=== PATIENT | male | born 1990 | race Caucasian/White ===

== ENCOUNTER 2020-01-16 18:27 | Emergency (ER) | payer SELFPAY ==
[~2020-01-16] VITALS: Ht 185.4 cm; Wt 98.9 kg
[~2020-01-16 18:27] MED LIST: ANAPROX DS550 MG PO; CIPRO500 MG PO
[2020-01-16 18:30] VITALS: BP 126/74
== END 2020-01-16 21:25 | disposition home or self-care (01) ==
LOC: ED 18:27
DX: S01.81XA Laceration without foreign body of other part of head, initial encounter (principal); F17.200 Nicotine dependence, unspecified, uncomplicated; V09.9XXA Pedestrian injured in unspecified transport accident, initial encounter; Y93.89 Activity, other specified; Y92.89 Other specified places as the place of occurrence of the external cause; Y99.8 Other external cause status